=== PATIENT | male | born 1965 | race Caucasian/White ===

== ENCOUNTER 2017-03-01 06:16 | Day surgery (SDC) | payer OTHER ==
[~2017-03-01] VITALS: Ht 167.6 cm; Wt 85.0 kg
[~2017-03-01 06:16] MED LIST: ALBU8.5H IH; FLUT44HFA IH
[2017-03-01] MEDS ORDERED: SODIUM CHLORIDE 0.9% 1,000 ML IV ONE ×2 (06:30→07:02)
[2017-03-01] MEDS ORDERED: FentaNYL CITRATE-PF 100 MCG/2 ML VIAL ONE (07:18)
[2017-03-01] MEDS ORDERED: MIDAZOLAM HCL 2 MG/2 ML VIAL ONE (07:18)
[2017-03-01] MEDS ORDERED: OXYGEN THERAPY IH SCH (08:41)
[2017-03-01] MEDS ORDERED: MethylPREDNISolone SOD SUCC 125 MG/2 ML VIAL IVP ONE (08:45)
[2017-03-01] MEDS ORDERED: MethylPREDNISolone SOD SUCC 125 MG/2 ML VIAL ONE (09:07)
[2017-03-01] MEDS ORDERED: LIDOCAINE HCL 2% 30 ML JELLY TP ONE (12:13)
[2017-03-01] MEDS ORDERED: BENZOCAINE 20% 50 MCG/SPRAY 57 GM TP ONE (12:13)
[2017-03-01] MEDS ORDERED: LIDOCAINE HCL 4% 50 ML SOLUTION TP ONE (12:13)
== END 2017-03-01 10:15 | disposition home or self-care (01) ==
LOC: SURGERY 06:16
PROVIDERS: ATTEND Internal Medicine Critical Care Medicine
DX: J38.4 Edema of larynx (principal); B37.0 Candidal stomatitis; J45.909 Unspecified asthma, uncomplicated; F99 Mental disorder, not otherwise specified
CPT/HCPCS: 31623; 31624; 71010; 87015 ×2; 87070; 87101; 87147; 87205; 87220; J2250; J2930; J3010; J7030; 88108; 88312